=== PATIENT | female | born 2000 | race Two or more races ===

== ENCOUNTER 2025-01-05 08:07 | Emergency (ER) | payer OTHER ==
[~2025-01-05] VITALS: Ht 162.6 cm; Wt 72.6 kg
[2025-01-05] MEDS ORDERED: RINGERS SOLUTION,LACTATED 1,000 ML IV STA (09:11)
[2025-01-05] MEDS ORDERED: MORPHINE SULFATE 2 MG/ML SYRINGE IV STA ×2 (09:13→12:30)
[2025-01-05] MEDS ORDERED: FAMOtidine 10 MG/ML (4ML VIAL) IV STA (09:14)
[2025-01-05] MEDS ORDERED: ONDANSETRON HCL 2 MG/ML VIAL IV ONE (09:15)
[2025-01-05 10:12] LABS: BASO % 0.3 % (0.1-1.2); EOS # 0.01 (0.04-0.54); EOS % 0.1 % (0.7-7.0); HEMATOCRIT 39.3 % (34.1-44.9); HEMOGLOBIN 13.2 g/dL (11.2-15.7); LYMPH # 0.89 (1.18-3.74); LYMPH % 10.4 % (19.3-53.1); MEAN CORPUSCULAR HEMOGLOBIN 28.6 pg (25.6-32.2); MONO # 0.22 (0.24-0.82); MONO % 2.6 % (4.7-12.5); NEUT # 7.41 (1.56-6.13); NEUT % 86.4 % (34.0-71.1); PLATELET COUNT 266 K/uL (163-369); RED BLOOD COUNT 4.62 M/uL (3.93-5.22); RED CELL DISTRIBUTION WIDTH 13.2 % (11.6-14.4)
[2025-01-05 10:50] LABS: ALBUMIN 4.5 gm/dL (3.4-5.0); BILIRUBIN TOTAL 0.34 mg/dL (0.3-1.2); BILIRUBIN,CONJUGATED 0.12 mg/dL (0.0-0.2); BILIRUBIN,UNCONJUGATED 0.22 mg/dL (0.0-0.6); CALCIUM 9.4 mg/dL (8.5-10.1); CREATININE SERUM 0.79 mg/dL (0.55-1.02); GFR 88.67; POTASSIUM 3.46 mEq/L (3.5-5.1); TOTAL PROTEIN 8.4 gm/dL (6.4-8.2)
[2025-01-05 15:20] LABS: PH,URINE 7.5 (5.0-8.0); URINE APPEARANCE Clear; URINE BILIRRUBIN Negative (NEGATIVE); URINE BLOOD Negative; URINE COLOR Yellow; URINE GLUCOSE Negative (NEGATIVE); URINE LEUKOCYTE Negative; URINE NITRATE Negative; URINE PROTEIN Trace (NEGATIVE); URINE UROBILINOGEN 0.2 E.U./dl
[2025-01-05 15:21] LABS: URINE BACTERIA 320.6 uL (0.0-1933); URINE EPITHELIAL CELLS 16.4 uL (0.0-38.8); URINE KETONE >=160 (NEGATIVE); URINE RBC 7.9 uL (0.0-20.8); URINE WBC 4.5 uL (0.0-23.2)
[2025-01-05] MEDS ORDERED: PEPCID AC20 MG PO (16:25)
[2025-01-05] MEDS ORDERED: ZOFRAN8 MG PO (16:25)
[2025-01-05] MEDS ORDERED: PROBIOTIC1 EAC2 PO (16:25)
== END 2025-01-05 16:35 | disposition home or self-care (01) ==
LOC: ER 08:21
PROVIDERS: General Practice
DX: K52.89 Other specified noninfective gastroenteritis and colitis (principal)